=== PATIENT | female | born 1935 | race Caucasian/White ===

== ENCOUNTER 2025-01-18 11:40 | Emergency (ER) | payer MEDICARE, BC ==
[2025-01-18] MEDS ORDERED: EPINEPHrine 1:10,000 1 MG/10 ML Syringe IVPUSH ONE ×5 (11:50→13:01)
== END 2025-01-18 17:55 | disposition expired ==
LOC: LL.ED 11:40
DX: I46.9 Cardiac arrest, cause unspecified (principal)
CPT/HCPCS: 31500; 92950; 99285-25; J0171